=== PATIENT | female | born 1990 | race Two or more races ===

== ENCOUNTER 2019-06-13 08:44 | Outpatient (CLI) | payer OTHER | END 2019-06-13 08:46 | disposition home or self-care (01) | LOC: RX STUDY 08:44 | DX: N94.4 Primary dysmenorrhea (principal) ==

== ENCOUNTER 2020-03-26 12:11 | Day surgery (SDC) | payer OTHER ==
[2020-03-26] MEDS ORDERED: MULTI VITAMIN1 EACH PO (14:10)
[2020-03-26] MEDS ORDERED: PRENA1 TRUE CO1 EACH PO (14:11)
== END 2020-03-26 20:50 | disposition home or self-care (01) ==
LOC: CIR.AMB 12:11
PROVIDERS: ATTEND Obstetrics & Gynecology
DX: O02.1 Missed abortion (principal); Z20.828 Contact with and (suspected) exposure to other viral communicable diseases